=== PATIENT | male | born 1995 | race Caucasian/White ===

== ENCOUNTER 2020-11-01 16:58 | Outpatient (REF) | payer BC, SELFPAY ==
--- NOTE | 2020-11-01 17:04 | XR_ITS ---
EXAMINATION: Left hand series CLINICAL INFORMATION: Pain in left hand and wrist COMPARISON: None TECHNIQUE: 3 views of the left hand. FINDINGS: The scapholunate articulation appears narrowed The bones joints and soft tissues are otherwise unremarkable. XR/XR hand wrist LT IMPRESSION: Markedly narrowed appearance of the scapholunate articulation. 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
== END 2020-11-01 16:59 | disposition home or self-care (01) ==
LOC: HO.HMGCX 16:58
PROVIDERS: PCP Internal Medicine; Visit Provider Nurse Practitioner Family
DX: M79.642 Pain in left hand (principal); M25.532 Pain in left wrist
CPT/HCPCS: 73110; 73130

== ENCOUNTER 2024-02-17 08:03 | Outpatient (AMB) | payer OTHER, SELFPAY ==
--- NOTE | 2024-02-17 08:13 | MHC.OFFWIV ---
Intake Vital Signs 02/17/24 08:14 Height 6 ft 5 in Weight 220 lb BMI 26.1 BP 110/80 Blood Pressure Location Rt brachial Position Sitting Pulse 75 Pulse Source Pulse Oximeter Temp 98.0 F Temp Source Oral Pulse Oximetry (%) 96 Oxygen Delivery Method Room Air Intake Visit Reasons: EP LT wrist swelling/pain Intake Note: Pt is here today c/oLt wrist pain x4days ago no injury noted Allergies amoxicillin Adverse Reaction (Unknown, Verified 02/17/24 08:26) Unknown HPI EP LT wrist swelling/pain HPI Details Male presents to the office for a sick visit. Patient has noticed progressive pain and swelling in the left wrist. Does not recall any fall or injury. He was doing significant amount of yd work a week ago. This involved raking and cleaning. Physical Exam Vital Signs: Last Vital Signs Temp 98.0 F 02/17/24 08:14 Pulse 75 02/17/24 08:14 BP 110/80 02/17/24 08:14 Pulse Ox 96 02/17/24 08:14 Oxygen Delivery Method Room Air 02/17/24 08:14 BMI result Body Mass Index 26.1 Extrem Other: Left forearm: Wrist area is swollen compared to the right. Tender to touch. Able to flex the wrist completely. Tenderness over the tendons dorsally. Assessment & Plan Assessment & Plan (1) Tendinitis of left forearm: Code(s): M77.8 - Other enthesopathies, not elsewhere classified Plan: X-ray images personally reviewed by me. No fracture seen. Sling provided. Meloxicam sent in. Orders: Orders XR wrist LT min 3V Today M77.9 - Enthesopathy, unspecified XR forearm LT 2V Today M77.9 - Enthesopathy, unspecified Coding Level of Care Code Est Pt Level 4 (46492) Diagnoses Tendinitis of left forearm M77.8
[2024-02-17 08:14] VITALS: BP 110/80; PULSE 75; TEMP 36.7; O2SAT 96; BMI 26.1
--- NOTE | 2024-02-17 09:04 | MHC.OFFWIV ---
Intake Vital Signs 02/17/24 08:14 Height 6 ft 5 in Weight 220 lb BMI 26.1 BP 110/80 Blood Pressure Location Rt brachial Position Sitting Pulse 75 Pulse Source Pulse Oximeter Temp 98.0 F Temp Source Oral Pulse Oximetry (%) 96 Oxygen Delivery Method Room Air Intake Visit Reasons: EP LT wrist swelling/pain Allergies amoxicillin Adverse Reaction (Unknown, Verified 02/17/24 08:26) Unknown Physical Exam Vital Signs: Last Vital Signs Temp 98.0 F 02/17/24 08:14 Pulse 75 02/17/24 08:14 BP 110/80 02/17/24 08:14 Pulse Ox 96 02/17/24 08:14 Oxygen Delivery Method Room Air 02/17/24 08:14 BMI result Body Mass Index 26.1 Assessment & Plan Assessment & Plan Orders: Orders XR wrist LT min 3V Today M77.9 - Enthesopathy, unspecified XR forearm LT 2V Today M77.9 - Enthesopathy, unspecified Medications: New meloxicam 15 mg PO DAILY 14 tabs 0RF Coding
== END 2024-02-17 08:49 | disposition home or self-care (01) ==
PROVIDERS: PCP Internal Medicine; Visit Provider Internal Medicine
DX: M77.8 Other enthesopathies, not elsewhere classified (principal)
CPT/HCPCS: 99214

== ENCOUNTER 2024-02-17 08:23 | Outpatient (REF) | payer OTHER, SELFPAY ==
--- NOTE | ~2024-02-17 | XR_ITS ---
EXAMINATION: LEFT FOREARM, LEFT WRIST CLINICAL INFORMATION: Enthesopathy COMPARISON: Left wrist 11/01/2020 TECHNIQUE: 3 views left wrist, 2 views left forearm FINDINGS: No significant bone, joint or soft tissue abnormality is seen. The previously noted markedly narrowed appearance of the scapholunate articulation was probably artifactual secondary to technique as the scapholunate articulation appears normal on the current study. XR/XR forearm LT 2V IMPRESSION: Negative exam.
--- NOTE | ~2024-02-17 | XR_ITS ---
EXAMINATION: LEFT FOREARM, LEFT WRIST CLINICAL INFORMATION: Enthesopathy COMPARISON: Left wrist 11/01/2020 TECHNIQUE: 3 views left wrist, 2 views left forearm FINDINGS: No significant bone, joint or soft tissue abnormality is seen. The previously noted markedly narrowed appearance of the scapholunate articulation was probably artifactual secondary to technique as the scapholunate articulation appears normal on the current study. XR/XR wrist LT min 3V IMPRESSION: Negative exam.
== END 2024-02-17 08:24 | disposition home or self-care (01) ==
LOC: HO.HMGCX 08:23
PROVIDERS: PCP Internal Medicine; Visit Provider Internal Medicine
DX: M77.9 Enthesopathy, unspecified (principal)
CPT/HCPCS: 73090; 73110

== ENCOUNTER 2024-03-05 09:51 | Outpatient (AMB) | payer OTHER, SELFPAY ==
[2024-03-05 09:55] VITALS: BP 102/70; PULSE 65; O2SAT 99; BMI 26.3
--- NOTE | 2024-03-05 09:55 | A.OFFPC_ITS ---
Vital Signs 03/05/24 09:55 Height 6 ft 5 in Weight 221 lb 8 oz BMI 26.3 BP 102/70 Blood Pressure Location Rt brachial Position Sitting Pulse 65 Pulse Source Pulse Oximeter Pulse Oximetry (%) 99 Oxygen Delivery Method Room Air Intake Visit Reasons: Est Care/Requesting PE Intake Note: pt is here to est care Allergies amoxicillin Adverse Reaction (Unknown, Verified 03/05/24 10:23) Unknown Medication List - Last Reconciled 03/05/24 by VALENTINA Dial No Known Home Meds Tobacco use date assessed: 03/05/24 Dental Screening Dental Screen Date: 03/05/24 Did you have a dental visit in the last 12 months?: No Did you have a dental problem in the last 6 months where you did not have access to dental care?: No Was dental information given to patient?: Patient has dentist HPI HPI Comments History of Present Illness Details Patient is a 28-year-old male who I am meeting for the 1st time. He has not had a primary care provider and 10 years. He was previously seen in our walk-in in 2 weeks prior for left wrist pain after raking his yard for several hours. Patient had x-rays which were negative. Patient was given meloxicam with good effect. Patient arrives today with small amounts of swelling to his left forearm. Nonpitting. Patient denies tingling or numbness of the hands. States pain has mostly resolved. Patient has been instructed to rest the affected limb, utilize ice, and to utilize ibuprofen as needed. Patient states that he does have a past medical history significant for osteoarthritis of the right knee. He is currently being seen by [facility]. States that pain is most resolved with new shoe inserts. Patient will sign release to send medical information from Orthopedics. [facility] Surgical History (Updated 03/05/24 @ 10:25 by VALENTINA Dial) Hx of appendectomy Family History (Updated 03/05/24 @ 10:26 by VALENTINA Dial) Father Colon cancer Social History Housing: House Patient Tobacco Use Status: Former Tobacco user e-Cigarette/Vaping Use: Never Used Second Hand Smoke Exposure: No service: No Current occupational status: employed Current occupation: [employer] Current occupational exposures/hazards: Yes Questionnaire PHQ-9 Over the last 2 weeks, how often have you been bothered by any of the following problems? 1. Little interest or pleasure in doing things: not at all 2. Feeling down, depressed, or hopeless: not at all 3. Trouble falling or staying asleep, or sleeping too much: more than half the days 4. Feeling tired or having little energy: not at all 5. Poor appetite or overeating: not at all 6. Feeling bad about yourself - or that you are a failure or have let yourself or your family down: not at all 7. Trouble concentrating on things, such as reading the newspaper or watching television: not at all 8. Moving or speaking so slowly that other people could have noticed. Or the opposite - being so fidgety or restless that you have been moving around a lot more than usual: not at all 9. Thoughts that you would be better off or of hurting yourself in some way: not at all Total score: 2 Depression Screening Interpretation: Negative Depression Screening Done: Yes Source: Developed by Drs. Armani Nance, Marilee Rodriguez, Georgi Nicole and colleagues, with an educational eric from [employer]. Thrive Questionnaire Date Thrive assessed: 03/05/24 I am a: Patient What is your living situation today?: I have a steady place to live Within the past 12 months, did the food you bought not last and you didn't have the money to get more?: Never true Within the past 12 months, did you worry whether your food would run out before you got money to buy more?: Never true Do you have trouble paying for medicines?: No Do you have trouble getting transportation to medical appointments?: No Do you have trouble paying your heating and electricity bill?: No Do you have trouble taking care of your child, family member or friend?: No Do you have trouble with day-to-day activities such as bathing, preparing meals, shopping, managing finances, etc.?: No Are you currently unemployed and looking for a job?: No Are you interested in more education?: No THRIVE Score: 0 AUDIT C Alcohol Use Questionnaire (AUDIT-C) 1. How often do you have a drink containing alcohol?: 2-3 times a week 2. How many drinks containing alcohol do you have on a typical day when you are drinking?: 3 or 4 3. How often do you have six or more drinks on one occasion?: Monthly Total Score: 6 ONEAL-7 AMB Questionnaire ONEAL-7 Date ONEAL - 7 assessed: 03/05/24 Feeling nervous, anxious, or on edge: 1 = Several days Not being able to stop or control worryin = Not at all Worrying too much about different things: 1 = Several days Trouble relaxin = More than half the days Being so restless that it is hard to sit still: 2 = More than half the days Becoming easily annoyed or irritable: 2 = More than half the days Feeling afraid as if something awful might happen: 0 = Not at all Total ONEAL-7 score (0-4 normal; 5-9 mild; 10-14 moderate; 15-21 severe): 8 Source: Developed by Drs. Armani Nance, Marilee Rodriguez, Georgi Nicole and colleagues, with an educational eric from [employer]. ONEAL-7 Assessment Billing ONEAL-7 Assessment Tool: ONEAL-7 Assessment 54623 Review of Systems Const All systems reviewed & are unremarkable except as noted in HPI and below Skin/Breast Reports other (Edema right forearm) Physical exam (Primary Care) Vital Signs: Last Vital Signs Pulse 65 03/05/24 09:55 BP 102/70 03/05/24 09:55 Pulse Ox 99 03/05/24 09:55 Oxygen Delivery Method Room Air 03/05/24 09:55 Care Plan Goal for BP management: Vital signs reviewed stable BMI result Body Mass Index 26.3 Tobacco/Smoking Status: Tobacco use Status Tobacco use date assessed 03/05/24 03/05/24 10:05 Patient Tobacco Use Status Former Tobacco user 03/05/24 10:05 e-Cigarette/Vaping Use Never Used 03/05/24 10:05 PHQ-9: PHQ-9 Score PHQ-9: Total score 2 03/05/24 10:06 Depression Screening Interpretation: Negative Thrive Assessment: Date of Thrive Assessment Date Thrive assessed 03/05/24 03/05/24 10:06 Const Other: Appearance: Alert.? Oriented X3.? No acute distress.? Head: Normocephalic, atraumatic. Eyes: Pupils equal, round and reactive to light.? Neck: Normal inspection.? Neck supple.? CVS: Normal heart rate and rhythm.? Pulses normal.? Respiratory: No respiratory distress.? Breath sounds normal.? MSK: + Scant edema left forearm. Full ROM. No tenderness. Neuro: Oriented X 3.? No motor deficit.? No sensory deficit. CN 2-12 intact Assessment and Plan Assessment & Plan (1) Edema of left forearm: Comment: Patient has been instructed to use ibuprofen and ice as needed. Patient's recent x-ray was negative for fracture. Code(s): R60.0 - Localized edema Plan: Take your medications as prescribed. If you were prescribed antibiotics today, it is important that you take your medication to their entirety, do not skip any doses, do not finish them early. Follow-up with your primary care provider this week. Return to the emergency department with new or worsening symptoms. Such as fevers, chills, chest pain, shortness of breath, nausea, vomiting, dizziness, headache, vision changes, lethargy In case of emergency call 911 Plan Follow-up with physical exam in 4 months. Coding Level of Care Code Est Pt Level 3 (17872) Diagnoses Edema of left forearm R60.0 Additional Codes ONEAL-7 Assessment Billing - ONEAL-7 Assessment Tool: ONEAL-7 Assessment 53905 ([id number]) Time Spent (min) 24
== END 2024-03-05 11:07 | disposition home or self-care (01) ==
LOC: HO.HMGC 09:51
PROVIDERS: PCP Internal Medicine; Visit Provider Nurse Practitioner Primary Care
DX: R60.0 Localized edema (principal)
CPT/HCPCS: 99213

== ENCOUNTER 2024-03-23 07:41 | Outpatient (REF) | payer OTHER, SELFPAY ==
[2024-03-23 10:20] LABS: MANUAL DIFF FLAG NO
[2024-03-23 10:39] LABS: Basophils Absolute Auto 0.1 X10*3/uL (0.0-0.2); Basophils Percent Auto 0.7 % (0-2); Eosinophils Absolute Auto 0.3 X10*3/uL (0.0-0.4); Eosinophils Percent Auto 3.5 % (0-4); Hematocrit 45.6 % (42.0-52.0); Hemoglobin 15.8 g/dl (14.0-18.0); Imm Gran Abs Auto 0.04 X10*3/uL (0.00-0.03); Imm Gran Pct Auto 0.6 % (0.0-0.4); Lymphocytes Absolute Auto 2.3 X10*3/uL (1.2-4.9); Lymphocytes Percent Auto 32.2 % (20-40); Mean Corpuscular HGB Conc 34.6 g/dl (31.0-36.0); Mean Corpuscular Volume 86.7 fL (80.0-98.0); Mean Platelet Volume 10.4 fL (9.4-12.4); Monocytes Absolute Auto 0.6 X10*3/uL (0.1-1.2); Monocytes Percent Auto 8.1 % (2-11); Neutrophils Absolute Auto 3.9 x10*3/uL (2.0-8.3); Neutrophils Percent Auto 54.9 % (45-73); Platelet Count 219 X10*3/uL (160-400); Red Blood Count 5.26 X10*6/uL (4.60-5.80); Red Cell Distribution Width 12.2 % (11.0-16.0); White Blood Count 7.1 X10*3/uL (4.8-10.8)
[2024-03-23 10:46] LABS: Appearance Urine Clear; Color Urine Yellow; Glucose Urine UA Negative (Negative); Leukocyte Esterase Urine Negative (Negative); Nitrite Urine Negative (Negative); Urine Blood Negative (Negative); Urine Ketones Negative (Negative); Urine Protein Negative (Neg-Trace)
[2024-03-23 11:48] LABS: Alanine Aminotransferase 21 U/L (0-40); Albumin Level 4.5 g/dL (3.5-5.0); Alkaline Phosphatase 87 U/L (39-117); Anion Gap 12 (12-20); Aspartate Amino Transferase 21 U/L (5-37); Bilirubin Total 0.8 mg/dL (0.0-1.0); Blood Urea Nitrogen 13 mg/dL (9-16); Calcium 9.7 mg/dL (8.4-10.2); Carbon Dioxide 26 mmol/L (22-29); Chloride 105 mmol/L (96-108); Cholesterol 164 mg/dL (<200); Estimated Glomerular Filt Rate > 60; Glucose Random 86 mg/dL (60-115); HDL Cholesterol 41 mg/dL (>40); LDL Cholesterol Calculated 99 mg/dL (<100); Sodium 139 mmol/L (135-145); TSH reflex Free T4 1.52 uIU/mL (0.32-4.0); Total Protein 7.2 g/dL (6.5-8.0); Triglycerides 124 mg/dL (<150)
[2024-03-23 12:01] LABS: Vitamin B12 370 pg/mL (200-900)
[2024-03-27 16:53] LABS: Vitamin D 25-OH, D2 <4 ng/mL; Vitamin D 25-OH, D3 15 ng/mL; Vitamin D 25-OH, Total 15 ng/mL (30-100)
== END 2024-03-23 07:42 | disposition home or self-care (01) ==
LOC: HO.HMGCLDS 07:41
PROVIDERS: Visit Provider Nurse Practitioner Primary Care
DX: Z13.21 Encounter for screening for nutritional disorder (principal); Z13.0 Encounter for screening for diseases of the blood and blood-forming organs and certain disorders involving the immune mechanism; Z91.89 Other specified personal risk factors, not elsewhere classified; Z13.220 Encounter for screening for lipoid disorders; Z13.29 Encounter for screening for other suspected endocrine disorder; Z13.89 Encounter for screening for other disorder
CPT/HCPCS: 36415; 80053; 80061; 81003; 82306; 82607; 84207; 84443; 85025

== ENCOUNTER 2024-06-05 08:02 | Outpatient (AMB) | payer BC, SELFPAY ==
--- NOTE | 2024-06-05 08:10 | A.OFFPC_ITS ---
Vital Signs 06/05/24 08:11 Height 6 ft 5 in Weight 226 lb BMI 26.8 BP 120/76 Blood Pressure Location Rt brachial Position Sitting Pulse 65 Pulse Source Pulse Oximeter Pulse Oximetry (%) 98 Oxygen Delivery Method Room Air Intake Visit Reasons: Annual PE Intake Note: pt is here for annual PE. Allergies amoxicillin Adverse Reaction (Unknown, Verified 06/05/24 08:12) Unknown Medication List - Last Reconciled 06/05/24 by VALENTINA Dial No Known Home Meds Tobacco use date assessed: 06/05/24 Dental Screening Dental Screen Date: 06/05/24 Did you have a dental visit in the last 12 months?: No Did you have a dental problem in the last 6 months where you did not have access to dental care?: No Was dental information given to patient?: No HPI HPI Comments History of Present Illness Details Patient is a 28-year-old male in today for physical exam. PFSH Surgical History Hx of appendectomy Family History Father Colon cancer Social History Housing: House Patient Tobacco Use Status: Former Tobacco user e-Cigarette/Vaping Use: Never Used Second Hand Smoke Exposure: No service: No Current occupational status: employed Current occupation: [employer] Current occupational exposures/hazards: Yes Questionnaire Thrive Questionnaire Date Thrive assessed: 03/05/24 ONEAL-7 AMB Questionnaire ONEAL-7 Date ONEAL - 7 assessed: 03/05/24 Source: Developed by Drs. Armani Nance, Marilee Rodriguez, Georgi Nicole and colleagues, with an educational eric from [employer]. Review of Systems Const All systems reviewed & are unremarkable except as noted in HPI and below Physical exam (Primary Care) Tobacco/Smoking Status: Tobacco use Status Tobacco use date assessed 03/05/24 03/05/24 10:38 Patient Tobacco Use Status Former Tobacco user 03/05/24 10:38 e-Cigarette/Vaping Use Never Used 03/05/24 10:38 Thrive Assessment: Date of Thrive Assessment Date Thrive assessed 03/05/24 03/05/24 10:38 Const Other: Appearance: Alert.? Oriented X3.? No acute distress.? Head: Normocephalic, atraumatic, no step-offs or deformities Eyes: Pupils equal, round and reactive to light.? ENT: Pharynx normal.?TM intact and pearly bryant. Neck: Normal inspection.? Neck supple.? CVS: Normal heart rate and rhythm.? Pulses normal.? Respiratory: No respiratory distress.? Breath sounds normal.? Abdomen: Soft and nontender.? Skin: Skin warm and dry.? Normal skin color.? Normal skin turgor.? Extremities: No lower extremity edema.? No calf ttp. 5/5 strength to bilateral upper and lower extremities Back: No midline tenderness, no C-spine tenderness, full range of motion, no CVA tenderness bilaterally Neuro: Oriented X 3.? No motor deficit.? No sensory deficit. CN 2-12 intact Results Reviewed Results Reviewed: Vit D, 25-OH D2 <4 ng/mL This test was developed and its analytical performance characteristics have been determined by [facility] [place], [place]. It has not been cleared or approved by the U.S. Food and Drug Administration. This assay has been validated pursuant to the CLIA regulations and is used for clinical purposes. THIS TEST WAS PERFORMED AT: [facility] [address] GEORGINA GALAN MD,PHD Vit D, 25-OH D3 15 ng/mL This test was developed and its analytical performance characteristics have been determined by [facility] [place], [place]. It has not been cleared or approved by the U.S. Food and Drug Administration. This assay has been validated pursuant to the CLIA regulations and is used for clinical purposes. Vit D 25-OH Tot 15 L 30-100 ng/mL Vitamin D, 25-Hydroxy reports concentrations of two common forms, 25-OHD2 and 25-OHD3. 25-OHD3 indicates both endogenous production and supplementation. 25-OHD2 is an indicator of exogenous sources such as diet or supplementation. Therapy is based on measurement of Total 25-OHD, with levels <20 ng/mL indicative of Vitamin D deficiency, while levels between 20 ng/mL and 30 ng/mL suggest insufficiency. Optimal levels are > or = 30 ng/mL. For additional information, please refer to http://education.SocialEars.Mindframe/faq/TOT621 (This link is being provided for informational/ educational purposes only.) Assessment and Plan Assessment & Plan (1) Physical exam: Comment: patient has been educated on the importance of self-testicular exams. Has been educated on proper food diet. Has been educated on reduction of alcohol consumption. Will give tetanus vaccine today. Code(s): Z00.00 - Encounter for general adult medical examination without abnormal findings (2) Vitamin D deficiency: Comment: Patient has been utilizing 2000 units vitamin D3 daily. Will redraw vitamin- D. Code(s): E55.9 - Vitamin D deficiency, unspecified Plan Follow-up in 6-8 months Orders: Orders Vitamin D 25-OH (D2 and D3) Today Z13.21 - Encounter for screening for nutritional disorder Comprehensive Met. Panel Today Z91.89 - Other specified personal risk factors, not elsewhere classified Complete Blood Count Auto Diff Today Z13.0 - Encounter for screening for diseases of the blood and blood-forming organs and certain disorders involving the immune mechanism Coding Level of Care Code Est Pt Prev Care 18-39y(00799) Diagnoses Physical exam Z00.00 Vitamin D deficiency E55.9 Time Spent (min) 28
[2024-06-05 08:11] VITALS: BP 120/76; PULSE 65; O2SAT 98; BMI 26.8
== END 2024-06-05 08:29 | disposition home or self-care (01) ==
PROVIDERS: PCP Nurse Practitioner Primary Care; Visit Provider Nurse Practitioner Primary Care
DX: Z00.00 Encounter for general adult medical examination without abnormal findings (principal); E55.9 Vitamin D deficiency, unspecified; Z23 Encounter for immunization
CPT/HCPCS: 90471; 90715; 99395

== ENCOUNTER 2024-08-20 08:06 | Outpatient (AMB) | payer BC, SELFPAY ==
[2024-08-20 08:08] VITALS: BP 140/80; PULSE 56; O2SAT 98; BMI 27.3
--- NOTE | 2024-08-20 08:08 | AM.OFFWIN_ITS ---
Intake Vital Signs 08/20/24 08:08 Height 6 ft 5 in Weight 230 lb 8 oz BMI 27.3 BP 140/80 H Blood Pressure Location Lt brachial Position Sitting Pulse 56 Pulse Source Pulse Oximeter Pulse Oximetry (%) 98 Oxygen Delivery Method Room Air Intake Visit Reasons: EP-tonsil swollen at times Intake Note: Patient here for right tonsil area has been bothersome for a few weeks now. Patient Tobacco Use Status: Former Tobacco user Allergies amoxicillin Adverse Reaction (Unknown, Verified 08/20/24 08:14) Unknown Do you need a note to return to daycare/school/sports/work: No HPI EP-tonsil swollen at times HPI Details This note is constructed using voice recognition software. 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 The patient is a 29 year old male who presents to the clinic today with Right sided swollen lymph node intermittently for the past 3 weeks. [facility]LY [facility], [facility] Surgical History Hx of appendectomy Family History Father Colon cancer Social History Housing: House Patient Tobacco Use Status: Former Tobacco user e-Cigarette/Vaping Use: Never Used Second Hand Smoke Exposure: No service: No Current occupational status: employed Current occupation: [employer] Current occupational exposures/hazards: Yes Review of Systems Const All systems reviewed & are unremarkable except as noted in HPI and below Physical Exam Vital Signs: Last Vital Signs Pulse 56 08/20/24 08:08 BP 140/80 H 08/20/24 08:08 Pulse Ox 98 08/20/24 08:08 Oxygen Delivery Method Room Air 08/20/24 08:08 BMI result Body Mass Index 27.3 Const General: cooperative, healthy appearing, comfortable and no acute distress Orientation/consciousness: patient oriented x3 Limitations: no limitations HEENT Head: Yes normal to inspection Ears: hearing grossly normal bilaterally, external ears normal and TM abnormal retracted General nose exam: Normal external nose present, No nasal discharge present and Abnormal mucous membranes and turbinates present boggy and pale Face and sinus: Yes normal facial exam and Yes sinuses nontender Mouth: Normal oral and palatal mucosa present and moist mucous membranes Throat: Yes tonsils normal, Yes uvula midline, Yes posterior oropharynx abnormal (Erythema), Yes postnasal drainage and Yes cobblestoning Eyes General: appearance normal, both eyes and all related structures Neck Neck: Yes normal visual inspection Resp Effort & Inspection: normal respiratory effort, able to speak in complete sentences, Actively coughing, no respiratory distress, not tachypneic, no tripod positioning and no use of accessory muscles Auscultation: clear to auscultation bilaterally Cardio Rate: regular rate Rhythm: regular rhythm Heart sounds: normal S1 and S2 Skin General skin exam: no rashes or lesions noted Neuro General: patient oriented x3 Extrem General: Yes normal to inspection and Yes no clubbing, cyanosis or edema Assessment & Plan Assessment & Plan (1) Allergic rhinitis: Code(s): J30.9 - Allergic rhinitis, unspecified Qualifiers: Allergic rhinitis trigger: pollen Allergic rhinitis seasonality: seasonal Qualified Code(s): J30.1 - Allergic rhinitis due to pollen Plan: Supportive measures encouraged and reviewed. Advised patient to try a Flonase nasal spray and second-generation antihistamine such as Zyrtec, Claritin, Vangie or similar. Advised consideration of sinus rinse if needed. Advised patient to follow up with primary care provider with worsening or failure to resolve. Plan See above for full details and plan. Coding Level of Care Code Est Pt Level 3 (45689) Diagnoses Seasonal allergic rhinitis due to pollen J30.1 Allergic rhinitis trigger: pollen Allergic rhinitis seasonality: seasonal
== END 2024-08-20 09:10 | disposition home or self-care (01) ==
PROVIDERS: PCP Nurse Practitioner Primary Care; Visit Provider Registered Nurse
DX: J30.1 Allergic rhinitis due to pollen (principal)

== ENCOUNTER → 2024-08-20 08:06 | Outpatient (BNVA) | payer BC, SELFPAY | PROVIDERS: PCP Nurse Practitioner Primary Care | DX: J30.1 Allergic rhinitis due to pollen (principal) ==

== ENCOUNTER 2024-10-12 13:19 | Outpatient (AMB) | payer BC, SELFPAY ==
[2024-10-12 13:31] VITALS: BP 128/78; PULSE 71; O2SAT 98; BMI 27.7
--- NOTE | 2024-10-12 13:31 | MHC.PC.OV ---
Vital Signs 10/12/24 13:31 Height 6 ft 5 in Weight 234 lb BMI 27.7 BP 128/78 Blood Pressure Location Lt brachial Position Sitting Pulse 71 Pulse Source Pulse Oximeter Pulse Oximetry (%) 98 Oxygen Delivery Method Room Air Intake Visit Reasons: sinus congestion Intake Note: Pt is here today for a sick visit. Pt c/o sinus congestion. Pt states that when he is using nasal spray he has no congestion. Allergies amoxicillin Adverse Reaction (Unknown, Verified 10/12/24 13:35) Unknown Medication List - Last Reconciled 10/12/24 by Sarah Tipton MD No Known Home Meds Tobacco use date assessed: 06/05/24 Dental Screening Dental Screen Date: 06/05/24 HPI sinus congestion HPI Details Pt c/o nasal congestion for 2 weeks using decongestant nasal spray every 4- 6 hrs. Patient denies fever chills sore throat sinus or facial pain. 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 Patient denies history of seasonal allergy. [facility] Surgical History Hx of appendectomy Family History Father Colon cancer Social History Housing: House Patient Tobacco Use Status: Former Tobacco user e-Cigarette/Vaping Use: Never Used Second Hand Smoke Exposure: No service: No Current occupational status: employed Current occupation: [employer] Current occupational exposures/hazards: Yes Cognitive needs: No Hearing needs: No Vision needs: No Questionnaire PHQ-9 Over the last 2 weeks, how often have you been bothered by any of the following problems? 1. Little interest or pleasure in doing things: not at all 2. Feeling down, depressed, or hopeless: not at all 3. Trouble falling or staying asleep, or sleeping too much: not at all 4. Feeling tired or having little energy: not at all 5. Poor appetite or overeating: not at all 6. Feeling bad about yourself - or that you are a failure or have let yourself or your family down: not at all 7. Trouble concentrating on things, such as reading the newspaper or watching television: not at all 8. Moving or speaking so slowly that other people could have noticed. Or the opposite - being so fidgety or restless that you have been moving around a lot more than usual: not at all 9. Thoughts that you would be better off or of hurting yourself in some way: not at all Total score: 0 Depression Screening Interpretation: Negative Depression Screening Done: Yes 29639 - PHQ-9 Billing: Yes Source: Developed by Drs. Armani Nance, Marilee Rodriguez, Georgi Nicole and colleagues, with an educational eric from [employer]. Thrive Questionnaire Date Thrive assessed: 03/05/24 I am a: Patient What is your living situation today?: I have a steady place to live Within the past 12 months, did the food you bought not last and you didn't have the money to get more?: Never true Within the past 12 months, did you worry whether your food would run out before you got money to buy more?: Never true Do you have trouble paying for medicines?: No Do you have trouble getting transportation to medical appointments?: No Do you have trouble paying your heating and electricity bill?: No Do you have trouble taking care of your child, family member or friend?: No Do you have trouble with day-to-day activities such as bathing, preparing meals, shopping, managing finances, etc.?: No Are you currently unemployed and looking for a job?: No Are you interested in more education?: No Please select the resources that you would like help with: None Currently or been in a relationship where the following occur: No concerns reported THRIVE Score: 0 AUDIT C Alcohol Use Questionnaire (AUDIT-C) 1. How often do you have a drink containing alcohol?: 2-3 times a week 2. How many drinks containing alcohol do you have on a typical day when you are drinking?: 3 or 4 3. How often do you have six or more drinks on one occasion?: Less than monthly Total Score: 5 ONEAL-7 AMB Questionnaire ONEAL-7 Date ONEAL - 7 assessed: 03/05/24 Feeling nervous, anxious, or on edge: 0 = Not at all Not being able to stop or control worryin = Not at all Worrying too much about different things: 0 = Not at all Trouble relaxin = Not at all Being so restless that it is hard to sit still: 0 = Not at all Becoming easily annoyed or irritable: 0 = Not at all Feeling afraid as if something awful might happen: 0 = Not at all Total ONEAL-7 score (0-4 normal; 5-9 mild; 10-14 moderate; 15-21 severe): 0 Source: Developed by Drs. Armani Nance, Marilee Rodriguez, Georgi Nicole and colleagues, with an educational eric from [employer]. Review of Systems Const All systems reviewed & are unremarkable except as noted in HPI and below ENT Reports no additional complaints Card Reports no additional complaints Resp Reports no additional complaints GI Reports no additional complaints Reports no additional complaints Physical exam (Primary Care) Vital Signs: Last Vital Signs Pulse 71 10/12/24 13:31 BP 128/78 10/12/24 13:31 Pulse Ox 98 10/12/24 13:31 Oxygen Delivery Method Room Air 10/12/24 13:31 BMI result Body Mass Index 27.7 Tobacco/Smoking Status: Tobacco use Status Tobacco use date assessed 06/05/24 10/12/24 13:37 Patient Tobacco Use Status Former Tobacco user 10/12/24 13:37 e-Cigarette/Vaping Use Never Used 10/12/24 13:37 PHQ-9: PHQ-9 Score PHQ-9: Total score 0 10/12/24 13:37 Depression Screening Interpretation: Negative Thrive Assessment: Date of Thrive Assessment Date Thrive assessed 03/05/24 10/12/24 13:37 Currently or been in a relationship where the following occur: No concerns reported Const General: no acute distress HENMT Head: Yes normal to inspection Ears: TM's normal bilaterally General nose exam: Abnormal mucous membranes and turbinates present boggy and erythematous Face and sinus: No Facial tenderness on exam of face and sinuses Throat: Yes posterior oropharynx normal Eyes General: appearance normal, both eyes and all related structures Neck Neck: Yes no lymphadenopathy and Yes supple Resp Effort & Inspection: normal respiratory effort Auscultation: clear to auscultation bilaterally Cardio Rhythm: regular rhythm Heart sounds: S1 normal heart sound present and S2 normal heart sound present Coding Level of Care Code Est Pt Level 3 (18137) Diagnoses Rhinitis medicamentosa J31.0; T48.5X5A Additional Codes PHQ-9 - 69075 - PHQ-9 Billing: Yes ([id number]) Assessment & Plan Assessment & Plan (1) Rhinitis medicamentosa: Code(s): J31.0 - Chronic rhinitis; T48.5X5A - Adverse effect of other tiet-ibtzbi-szld drugs, initial encounter Category: Medical Plan: Patient was advised to stop using decongestant nasal spray. prednisone 20 mg daily for 7 days is prescribed. patient was advised to use a saline nasal spray as needed and add Claritin if he has recurrent congestion after prednisone. Medications: New prednisone 20 mg PO DAILY 7 tabs 0RF prednisone 20 mg PO DAILY 7 tabs 0RF
== END 2024-10-12 14:02 | disposition home or self-care (01) ==
PROVIDERS: PCP Internal Medicine; Visit Provider Internal Medicine
DX: J31.0 Chronic rhinitis (principal); T48.5X5A Adverse effect of other anti-common-cold drugs, initial encounter

== ENCOUNTER → 2024-10-12 13:19 | Outpatient (BNVA) | payer BC, SELFPAY | PROVIDERS: PCP Internal Medicine; Visit Provider Internal Medicine | DX: J31.0 Chronic rhinitis (principal); T88.7XXA Unspecified adverse effect of drug or medicament, initial encounter; T48.5X5A Adverse effect of other anti-common-cold drugs, initial encounter | CPT/HCPCS: 96127 ==

== ENCOUNTER 2025-01-12 09:44 | Outpatient (AMB) | payer BC, SELFPAY ==
[2025-01-12 09:45] VITALS: BP 124/80; PULSE 88; RESP 18; TEMP 37.5; O2SAT 97; BMI 27.5
--- NOTE | 2025-01-12 09:45 | A.OFFPC_ITS ---
Vital Signs 01/12/25 09:45 Height 6 ft 5 in Weight 232 lb BMI 27.5 BP 124/80 Blood Pressure Location Lt brachial Position Sitting Respiration 18 Pulse 88 Pulse Source Pulse Oximeter Temp 99.5 F Temp Source Oral Pulse Oximetry (%) 97 Oxygen Delivery Method Room Air Intake Visit Reasons: throat pain Intake Note: Pt is here today for a sick visit. Pt c/o sore throat, headache, weakness diarrhea, fever since Saturday night. Pt also states that he has a cough and yellow/green mucus. Allergies amoxicillin Adverse Reaction (Unknown, Verified 01/12/25 09:45) Unknown Tobacco use date assessed: 01/12/25 Dental Screening Dental Screen Date: 01/12/25 Did you have a dental visit in the last 12 months?: Yes Did you have a dental problem in the last 6 months where you did not have access to dental care?: No Was dental information given to patient?: Patient has dentist HPI throat pain HPI Details Pt c/o diarrhea, fever for 2 days, body aches, and productive cough getting better today. Patient denies nausea vomiting abdominal pain hematochezia melena he has been tolerating bland diet. [facility] Surgical History Hx of appendectomy Family History Father Colon cancer Social History Housing: House Patient Tobacco Use Status: Former Tobacco user e-Cigarette/Vaping Use: Never Used Second Hand Smoke Exposure: No service: No Current occupational status: employed Current occupation: [employer] Current occupational exposures/hazards: Yes Cognitive needs: No Hearing needs: No Vision needs: No Questionnaire PHQ-9 Over the last 2 weeks, how often have you been bothered by any of the following problems? 1. Little interest or pleasure in doing things: not at all 2. Feeling down, depressed, or hopeless: not at all 3. Trouble falling or staying asleep, or sleeping too much: not at all 4. Feeling tired or having little energy: not at all 5. Poor appetite or overeating: not at all 6. Feeling bad about yourself - or that you are a failure or have let yourself or your family down: not at all 7. Trouble concentrating on things, such as reading the newspaper or watching television: not at all 8. Moving or speaking so slowly that other people could have noticed. Or the opposite - being so fidgety or restless that you have been moving around a lot more than usual: not at all 9. Thoughts that you would be better off or of hurting yourself in some way : not at all Total score: 0 Depression Screening Interpretation: Negative Depression Screening Done: Yes 38963 - PHQ-9 Billing: Yes Source: Developed by Drs. Armani Nance, Marilee Rodriguez, Georgi Nicole and colleagues, with an educational eric from [employer]. Thrive Questionnaire Date Thrive assessed: 01/12/25 I am a: Patient What is your living situation today?: I have a steady place to live Within the past 12 months, did the food you bought not last and you didn't have the money to get more?: Never true Within the past 12 months, did you worry whether your food would run out before you got money to buy more?: Never true Do you have trouble paying for medicines?: No Do you have trouble getting transportation to medical appointments?: No Do you have trouble paying your heating and electricity bill?: No Do you have trouble taking care of your child, family member or friend?: No Do you have trouble with day-to-day activities such as bathing, preparing meals, shopping, managing finances, etc.?: No Are you currently unemployed and looking for a job?: No Are you interested in more education?: No Please select the resources that you would like help with: None Currently or been in a relationship where the following occur: No concerns reported THRIVE Score: 0 AUDIT C Alcohol Use Questionnaire (AUDIT-C) 1. How often do you have a drink containing alcohol?: 2-4 times a month 2. How many drinks containing alcohol do you have on a typical day when you are drinking?: 3 or 4 3. How often do you have six or more drinks on one occasion?: Less than monthly Total Score: 4 ONEAL-7 AMB Questionnaire ONEAL-7 Date ONEAL - 7 assessed: 01/12/25 Feeling nervous, anxious, or on edge: 0 = Not at all Not being able to stop or control worryin = Not at all Worrying too much about different things: 0 = Not at all Trouble relaxin = Not at all Being so restless that it is hard to sit still: 0 = Not at all Becoming easily annoyed or irritable: 0 = Not at all Feeling afraid as if something awful might happen: 0 = Not at all Total ONEAL-7 score (0-4 normal; 5-9 mild; 10-14 moderate; 15-21 severe): 0 Source: Developed by Drs. Armani Nance, Marilee Rodriguez, Georgi Nicole and colleagues, with an educational eric from [employer]. ONEAL-7 Assessment Billing ONEAL-7 Assessment Tool: ONEAL-7 Assessment 14034 Review of Systems Const All systems reviewed & are unremarkable except as noted in HPI and below Eyes Reports no additional complaints ENT Reports no additional complaints Card Reports no additional complaints Resp Reports no additional complaints GI Reports no additional complaints Reports no additional complaints Physical exam (Primary Care) Vital Signs: Last Vital Signs Temp 99.5 F 01/12/25 09:45 Pulse 88 01/12/25 09:45 Resp 18 01/12/25 09:45 BP 124/80 01/12/25 09:45 Pulse Ox 97 01/12/25 09:45 Oxygen Delivery Method Room Air 01/12/25 09:45 BMI result Body Mass Index 27.5 Tobacco/Smoking Status: Tobacco use Status Tobacco use date assessed 01/12/25 01/12/25 09:55 Patient Tobacco Use Status Former Tobacco user 01/12/25 09:55 e-Cigarette/Vaping Use Never Used 01/12/25 09:55 PHQ-9: PHQ-9 Score PHQ-9: Total score 0 01/12/25 10:03 Depression Screening Interpretation: Negative Thrive Assessment: Date of Thrive Assessment Date Thrive assessed 01/12/25 01/12/25 09:55 Currently or been in a relationship where the following occur: No concerns reported Const General: no acute distress HENMT Head: Yes normal to inspection Face and sinus: Yes normal facial exam Eyes General: appearance normal, both eyes and all related structures Resp Effort & Inspection: normal respiratory effort Auscultation: clear to auscultation bilaterally Cardio Rhythm: regular rhythm Heart sounds: S1 normal heart sound present and S2 normal heart sound present GI Inspection: Yes normal to inspection Palpation (GI): Soft to palpation Percussion: Yes normal to percussion Auscultation: normal bowel sounds Results AMB Rapid Strep AMB Rapid Strep Negative Last Edit by NAVNEET Brian on 01/12/25 10: 03 Results Reviewed Results Reviewed: Laboratory Last Values Strep Scn Rapid Clinic Negative 01/12/25 09:57 Coding Level of Care Code Est Pt Level 3 (58043) Diagnoses Viral infection B34.9 Additional Codes ONEAL-7 Assessment Billing - ONEAL-7 Assessment Tool: ONEAL-7 Assessment 31320 ([id number]) PHQ-9 - 15108 - PHQ-9 Billing: Yes ([id number]) Assessment & Plan Assessment & Plan (1) Viral infection: Code(s): B34.9 - Viral infection, unspecified Category: Medical Plan: Supportive care discussed with the patient Orders: Orders AMB Rapid Strep Screen Today Z13.9 - Encounter for screening, unspecified
--- OUTSIDE RECORDS SUMMARY | 2025-01-12 10:31 | XMS_ITS | Clinical Summary ---
Author Organization [facility] Address [address] [place] [id number] Phone Care Team Providers Care Crystal Calibrator Name Role Phone Renetta Hoffmann MD Primary Care Pro vider Social History Tobacco Use Types Packs/Day Years Used Date Smoking Tobacco: Never Comments:Never Sex and Gender Information Value Date Recorded Sex Assigned at Not on file Legal Sex Male 12:18 PM EST Gender Identity Not on file Sexual Orientation Not on file Last Filed Vital Signs Vital Sign Reading Time Taken Comments Blood Pressure 109/64 07/25/2015 12:00 AM EDT Pulse 61 07/25/2015 12:00 AM EDT Temperature 36.6 ??C (97.8 ??F) 07/25/2015 12:00 AM E DT Respiratory Rate - - Oxygen Saturation - - Inhaled Oxygen Concentration - - Weight 91.8 kg (202 lb 6 oz) 07/25/2015 12:00 AM EDT Height 195.6 cm (6' 5 ) 07/25/2015 12:00 AM EDT Body Mass Index 24 07/25/2015 12:00 AM EDT Plan of Treatment Health Maintenance Due Date Last Done Comments Consider Men B Vaccine (1 of 2 - Bexsero 2-dose series) 2010 DTaP,Tdap,and Td Vaccines (8 - Td or Tdap) 04/26/2018 04/26/2008, 02/07/2005, 02/14/1999, Additional history exists Influenza Vaccines (#1) 2024 09/10/20 14, 06/11/2012, 08/26/2010, Additional history exists COVID-19 Vaccine ( season) 2024 Hepatitis B Vaccines Completed 02/03/1995, 1994, 1994 HIB Vaccines Completed 11/06/1995, 12/27, 1994, Additional history exists IPV Vaccines Completed 11/06/1995, 12/27, 1994, Additional history exists MMR Vaccines Completed 02/14/1999, 07/12/1996 Varicella Vaccines Completed 05/05/2007, 01/25/1997 HPV Vaccines Completed 06/07/2011, 06/26, 05/16/2010 Meningococcal Vaccine Completed 06/11/2012, 007 Hepatitis A Vaccines Aged Out No long er eligible based on patient's age to complete this topic Men B Vaccine Aged Out No longer elig ible based on patient's age to complete this topic Pneumococcal Vaccine Aged Out No long er eligible based on patient's age to complete this topic Care Teams Crystal Calibrator Relationship Specialty Start Date End Date Renetta Hoffmann MD [address] [place] [id number] PCP - General 07/25/15
--- OUTSIDE RECORDS SUMMARY | 2025-01-12 10:31 | XMS_ITS | Encounter Summary ---
Author Organization [facility] Address [address] [place] [address] Phone Care Team Providers Care Client Service Coordinator Name Role Phone Renetta Hoffmann MD Primary Care Pro vider Encounter Details Date Type Department Care Team (Late st Contact Info) Description 01/23/2018 Conversion Encounter [facility] [address] [phone] Renetta Hoffmann MD [address] [phone] Social History Tobacco Use Types Packs/Day Years Used Date Smoking Tobacco: Never Comments:Never Sex and Gender Information Value Date Recorded Sex Assigned at Not on file Legal Sex Male 12:18 PM EST Gender Identity Not on file Sexual Orientation Not on file documented as of this encounter Plan of Treatment Not on file documented as of this encounter Visit Diagnoses Not on filedocumented in this encounter Care Teams Client Service Coordinator Relationship Specialty Start Date End Date Renetta Hoffmann MD [address] [id number] PCP - General 07/25/15 documented as of this encounter
== END 2025-01-12 10:35 | disposition home or self-care (01) ==
PROVIDERS: PCP Internal Medicine; Visit Provider Internal Medicine
DX: Z13.9 Encounter for screening, unspecified (principal); B34.9 Viral infection, unspecified

== ENCOUNTER → 2025-01-12 09:44 | Outpatient (BNVA) | payer BC, SELFPAY | PROVIDERS: PCP Internal Medicine; Visit Provider Internal Medicine | DX: B34.9 Viral infection, unspecified (principal) | CPT/HCPCS: 87880; 96127 ==

== ENCOUNTER 2025-02-01 10:06 | Outpatient (AMB) | payer BC, SELFPAY ==
--- NOTE | 2025-02-01 10:09 | A.OFFPC_ITS ---
Vital Signs 02/01/25 10:12 Height 6 ft 5 in Weight 215 lb BMI 25.5 BP 122/78 Blood Pressure Location Lt brachial Position Sitting Respiration 18 Pulse 78 Pulse Source Pulse Oximeter Pulse Oximetry (%) 98 Oxygen Delivery Method Room Air Intake [facility] Intake Note: Pt is here today to establish care, transferring from [facility]. Allergies amoxicillin Adverse Reaction (Unknown, Verified 02/01/25 10:10) Unknown Tobacco use date assessed: 02/01/25 Dental Screening Dental Screen Date: 02/01/25 Did you have a dental visit in the last 12 months?: Yes Did you have a dental problem in the last 6 months where you did not have access to dental care?: No Was dental information given to patient?: Patient has dentist [facility] HPI Details Pt presents for f/u URI, resolved. Pt c/o anxiety on and off for 1 year. Patient denies depression insomnia change in appetite. He feels better after working out. PFSH Surgical History Hx of appendectomy Family History Father Colon cancer Social History Housing: House Patient Tobacco Use Status: Former Tobacco user e-Cigarette/Vaping Use: Never Used Second Hand Smoke Exposure: No service: No Current occupational status: employed Current occupation: [employer] Current occupational exposures/hazards: Yes Cognitive needs: No Hearing needs: No Vision needs: No Questionnaire PHQ-9 Over the last 2 weeks, how often have you been bothered by any of the following problems? 1. Little interest or pleasure in doing things: not at all 2. Feeling down, depressed, or hopeless: not at all 3. Trouble falling or staying asleep, or sleeping too much: not at all 4. Feeling tired or having little energy: not at all 5. Poor appetite or overeating: not at all 6. Feeling bad about yourself - or that you are a failure or have let yourself or your family down: not at all 7. Trouble concentrating on things, such as reading the newspaper or watching television: not at all 8. Moving or speaking so slowly that other people could have noticed. Or the opposite - being so fidgety or restless that you have been moving around a lot more than usual: not at all 9. Thoughts that you would be better off or of hurting yourself in some way: not at all Total score: 0 Depression Screening Interpretation: Negative Depression Screening Done: Yes 49321 - PHQ-9 Billing: Yes Source: Developed by Drs. Armani Nance, Marilee Rodriguez, Georgi Nicole and colleagues, with an educational eric from [employer]. Thrive Questionnaire Date Thrive assessed: 02/01/25 I am a: Patient What is your living situation today?: I have a steady place to live Within the past 12 months, did the food you bought not last and you didn't have the money to get more?: Never true Within the past 12 months, did you worry whether your food would run out before you got money to buy more?: Never true Do you have trouble paying for medicines?: No Do you have trouble getting transportation to medical appointments?: No Do you have trouble paying your heating and electricity bill?: No Do you have trouble taking care of your child, family member or friend?: No Do you have trouble with day-to-day activities such as bathing, preparing meals, shopping, managing finances, etc.?: No Are you currently unemployed and looking for a job?: No Are you interested in more education?: No Please select the resources that you would like help with: None Currently or been in a relationship where the following occur: No concerns reported THRIVE Score: 0 AUDIT C Alcohol Use Questionnaire (AUDIT-C) 1. How often do you have a drink containing alcohol?: 2-4 times a month 2. How many drinks containing alcohol do you have on a typical day when you are drinking?: 3 or 4 3. How often do you have six or more drinks on one occasion?: Less than monthly Total Score: 4 Score Reviewed/Action Taken: Yes ONEAL-7 AMB Questionnaire ONEAL-7 Date ONEAL - 7 assessed: 02/01/25 Feeling nervous, anxious, or on edge: 0 = Not at all Not being able to stop or control worryin = Not at all Worrying too much about different things: 0 = Not at all Trouble relaxin = Not at all Being so restless that it is hard to sit still: 0 = Not at all Becoming easily annoyed or irritable: 0 = Not at all Feeling afraid as if something awful might happen: 0 = Not at all Total ONEAL-7 score (0-4 normal; 5-9 mild; 10-14 moderate; 15-21 severe): 0 Source: Developed by Drs. Armani Nance, Marilee Rodriguez, Georgi Nicole and colleagues, with an educational eric from [employer]. ONEAL-7 Assessment Billing ONEAL-7 Assessment Tool: ONEAL-7 Assessment 33864 Review of Systems Const All systems reviewed & are unremarkable except as noted in HPI and below Eyes Reports no additional complaints ENT Reports no additional complaints Card Reports no additional complaints Resp Reports no additional complaints GI Reports no additional complaints Reports no additional complaints Physical exam (Primary Care) Vital Signs: Last Vital Signs Pulse 78 02/01/25 10:12 Resp 18 02/01/25 10:12 BP 122/78 02/01/25 10:12 Pulse Ox 98 02/01/25 10:12 Oxygen Delivery Method Room Air 02/01/25 10:12 BMI result Body Mass Index 25.5 Tobacco/Smoking Status: Tobacco use Status Tobacco use date assessed 02/01/25 02/01/25 10:12 Patient Tobacco Use Status Former Tobacco user 02/01/25 10:12 e-Cigarette/Vaping Use Never Used 02/01/25 10:12 PHQ-9: PHQ-9 Score PHQ-9: Total score 0 02/01/25 10:22 Depression Screening Interpretation: Negative Thrive Assessment: Date of Thrive Assessment Date Thrive assessed 02/01/25 02/01/25 10:12 Currently or been in a relationship where the following occur: No concerns reported Const General: no acute distress HENMT Head: Yes normal to inspection Ears: hearing grossly normal bilaterally Face and sinus: Yes normal facial exam Eyes General: appearance normal, both eyes and all related structures Neck Neck: Yes no lymphadenopathy and Yes supple Resp Effort & Inspection: normal respiratory effort Auscultation: clear to auscultation bilaterally Cardio Rhythm: regular rhythm Heart sounds: S1 normal heart sound present and S2 normal heart sound present Coding Level of Care Code Est Pt Level 3 (45002) Diagnoses Anxiety F41.9 Additional Codes ONEAL-7 Assessment Billing - ONEAL-7 Assessment Tool: ONEAL-7 Assessment 46934 ([id number]) PHQ-9 - 31581 - PHQ-9 Billing: Yes ([id number]) Assessment & Plan Assessment & Plan (1) Anxiety: Code(s): F41.9 - Anxiety disorder, unspecified Category: Medical Plan: Stress management and regular physical activity mindfulness discussed with the patient
[2025-02-01 10:12] VITALS: BP 122/78; PULSE 78; RESP 18; O2SAT 98; BMI 25.5
--- OUTSIDE RECORDS SUMMARY | 2025-02-01 11:13 | XMS_ITS | Clinical Summary ---
Author Organization [facility] Address [address] [place] [phone] Phone Care Team Providers Care Oncology Navigator Name Role Phone Renetta Hoffmann MD Primary [...] Health Maintenance Due Date Last Done Comments DTaP,Tdap,and Td Vaccines (8 - Td or [...] age to complete this topic Care Teams Oncology Navigator Relationship Specialty Start Date End Date Renetta Hoffmann MD [address] [place] [id number] PCP - General 07/25/15
--- OUTSIDE RECORDS SUMMARY | 2025-02-01 11:13 | XMS_ITS | Encounter Summary ---
Author Organization [facility] Address [address] [place] [address] Phone Care Team Providers Care Glaze Handler Name Role Phone Renetta Hoffmann MD Primary Care Pro vider Encounter Details Date Type Department Care Team (Late st Contact Info) Description 01/23/2018 Conversion Encounter [facility] [address] [phone] Renetta Hoffmann MD [address] [phone] Social History Tobacco Use Types Packs/Day Years [...] on filedocumented in this encounter Care Teams Glaze Handler Relationship Specialty Start Date End Date Renetta Hoffmann MD [address] [phone] PCP - General 07/25/15 documented as of this encounter
== END 2025-02-01 10:54 | disposition home or self-care (01) ==
PROVIDERS: PCP Internal Medicine; Visit Provider Internal Medicine
DX: F41.9 Anxiety disorder, unspecified (principal)

== ENCOUNTER → 2025-02-01 10:06 | Outpatient (BNVA) | payer BC, SELFPAY | PROVIDERS: PCP Internal Medicine; Visit Provider Internal Medicine | DX: F41.9 Anxiety disorder, unspecified (principal) | CPT/HCPCS: 96127 ==

== ENCOUNTER 2025-04-28 08:06 | Outpatient (AMB) | payer BC, SELFPAY ==
--- OUTSIDE RECORDS SUMMARY | 2025-04-28 08:10 | XMS_ITS | Clinical Summary ---
Author Organization [facility] Address [address] [place] [phone] Phone Care Team Providers Care Justice Court Deputy Clerk Name Role Phone Renetta Hoffmann MD Primary [...] age to complete this topic Care Teams Justice Court Deputy Clerk Relationship Specialty Start Date End Date Renetta Hoffmann MD [address] [place] [phone] PCP - General 07/25/15
--- NOTE | 2025-04-28 08:11 | MHC.OFFWIV ---
Intake Vital Signs 04/28/25 08:12 Height 6 ft 5 in Weight 221 lb BMI 26.2 BP 124/80 Blood Pressure Location Rt brachial Position Sitting Pulse 61 Pulse Source Pulse Oximeter Temp 98.7 F Temp Source Oral Pulse Oximetry (%) 98 Oxygen Delivery Method Room Air Intake Visit Reasons: EP-whole body poison georges Patient Tobacco Use Status: Former Tobacco user Allergies amoxicillin Adverse Reaction (Unknown, Verified 04/28/25 08:12) Unknown Do you need a note to return to daycare/school/sports/work: Yes HPI HPI Comments History of Present Illness Details History of Present Illness The patient is a 29-year-old male presenting with a rash on arms and chest. The rash appeared about a week ago and is characterized by fluid-filled vesicular lesions. The patient reports the rash spread from the arms to the chest. He states that the rash is itchy. Initial at-home treatment with calamine lotion proved ineffective. The patient's symptoms do not include any systemic manifestations such as fever or respiratory distress. The patient believes that possible physical spread of the rash occurred through contact with vesicular fluid. There is no significant exposure noted apart from usual activities at home. She denies fever, chills, CP, SOB, joint pain, abd pain, n/v/d. He denies new lotions, soaps, detergents, clothes, foods, pets, recent travel or bug bites. Physical Exam General: Cooperative, healthy appearing, comfortable, no acute distress and well developed Respiratory: Normal respiratory effort and able to speak in complete sentences. Clear to auscultation bilaterally Cardiovascular: Regular rate and rhythm. Normal S1 and S2 Skin: Diffuse vesicular rash on the arms bilaterally and chest. No erythema noted. No discharge noted. Patient was informed and verbally consented to the use of an ambient scribe for clinic note documentation during this visit. [facility] Surgical History Hx of appendectomy Family History Father Colon cancer Social History Housing: House Patient Tobacco Use Status: Former Tobacco user e-Cigarette/Vaping Use: Never Used Second Hand Smoke Exposure: No service: No Current occupational status: employed Current occupation: [employer] Current occupational exposures/hazards: Yes Cognitive needs: No Hearing needs: No Vision needs: No Review of Systems Const All systems reviewed & are unremarkable except as noted in HPI and below Physical Exam Vital Signs: Last Vital Signs Temp 98.7 F 04/28/25 08:12 Pulse 61 04/28/25 08:12 BP 124/80 04/28/25 08:12 Pulse Ox 98 04/28/25 08:12 Oxygen Delivery Method Room Air 04/28/25 08:12 BMI result Body Mass Index 26.2 Assessment & Plan Assessment & Plan (1) Rash: Code(s): R21 - Rash and other nonspecific skin eruption Plan Most likely poison georges vs poison oak vs contact dermatitis Plan I will initiate treatment of the contact dermatitis with prednisone to alleviate inflammation and a topical corticosteroid cream to target the rash. The patient is advised on the importance of avoiding contact with the vesicular fluid to prevent further spread. Prescriptions will be forwarded to the patient's selected pharmacy. No additional testing is warranted currently, given the lack of systemic symptoms. A follow-up will be arranged if the condition does not improve or additional symptoms develop. Medications: New hydrocortisone 2.5% 1 appl topical BID PRN 30 grams 0RF Skin Irritation prednisone Day 1&2 take 4 tablets, day 3&4 take 3 tablets, day 5&6 take 2 tablets, days 7-9 take 1 tablet. 10 mg PO DIRECTED 21 ea 0RF hydroxyzine HCl 10 mg PO qid 7 days 28 tabs 0RF Coding Level of Care Code Est Pt Level 3 (65133) Diagnoses Rash R21
[2025-04-28 08:12] VITALS: BP 124/80; PULSE 61; TEMP 37.1; O2SAT 98; BMI 26.2
== END 2025-04-28 08:45 | disposition home or self-care (01) ==
PROVIDERS: PCP Internal Medicine; Visit Provider Physician Assistant Medical
DX: R21 Rash and other nonspecific skin eruption (principal)

== ENCOUNTER → 2025-04-28 08:06 | Outpatient (BNVA) | payer BC, SELFPAY | PROVIDERS: PCP Internal Medicine; Visit Provider Physician Assistant Medical ==

== ENCOUNTER 2025-06-08 13:23 | Outpatient (AMB) | payer BC, SELFPAY ==
[2025-06-08 13:33] VITALS: BP 118/76; PULSE 93; RESP 18; TEMP 36.7; O2SAT 96; BMI 26.0
--- NOTE | 2025-06-08 13:33 | MHC.PC.OV ---
Vital Signs 06/08/25 13:33 Height 6 ft 5 in Weight 219 lb BMI 26.0 BP 118/76 Blood Pressure Location Lt brachial Position Sitting Respiration 18 Pulse 93 Pulse Source Pulse Oximeter Temp 98.1 F Temp Source Oral Pulse Oximetry (%) 96 Oxygen Delivery Method Room Air Intake Visit Reasons: Annual PE Intake Note: Susanna is here today for PE. Allergies amoxicillin Adverse Reaction (Unknown, Verified 06/08/25 13:33) Unknown Tobacco use date assessed: 06/08/25 Dental Screening Dental Screen Date: 06/08/25 Did you have a dental visit in the last 12 months?: Yes Did you have a dental problem in the last 6 months where you did not have access to dental care?: No Was dental information given to patient?: Patient has dentist HPI Annual PE HPI Details Pt presents for PE. [facility] Medical History (Updated 06/08/25 @ 14:44 by Sarah Tipton MD) Physical exam Surgical History Hx of appendectomy Family History Father Colon cancer Social History Housing: House Patient Tobacco Use Status: Former Tobacco user e-Cigarette/Vaping Use: Never Used Second Hand Smoke Exposure: No service: No Current occupational status: employed Current occupation: [employer] Current occupational exposures/hazards: Yes Cognitive needs: No Hearing needs: No Vision needs: No Questionnaire Thrive Questionnaire Date Thrive assessed: 01/12/25 I am a: Patient What is your living situation today?: I have a steady place to live Within the past 12 months, did the food you bought not last and you didn't have the money to get more?: Never true Within the past 12 months, did you worry whether your food would run out before you got money to buy more?: Never true Do you have trouble paying for medicines?: No Do you have trouble getting transportation to medical appointments?: No Do you have trouble paying your heating and electricity bill?: No Do you have trouble taking care of your child, family member or friend?: No Do you have trouble with day-to-day activities such as bathing, preparing meals, shopping, managing finances, etc.?: No Are you currently unemployed and looking for a job?: No Are you interested in more education?: No Please select the resources that you would like help with: None Currently or been in a relationship where the following occur: No concerns reported THRIVE Score: 0 ONEAL-7 AMB Questionnaire ONEAL-7 Date ONEAL - 7 assessed: 02/01/25 Source: Developed by Drs. Armani Nance, Marilee Rodriguez, Georgi Nicole and colleagues, with an educational eric from [employer]. Review of Systems Const All systems reviewed & are unremarkable except as noted in HPI and below Eyes Reports no additional complaints ENT Reports no additional complaints Card Reports no additional complaints Resp Reports no additional complaints GI Reports no additional complaints Reports no additional complaints Physical exam (Primary Care) Vital Signs: Last Vital Signs Temp 98.1 F 06/08/25 13:33 Pulse 93 06/08/25 13:33 Resp 18 06/08/25 13:33 BP 118/76 06/08/25 13:33 Pulse Ox 96 06/08/25 13:33 Oxygen Delivery Method Room Air 06/08/25 13:33 BMI result Body Mass Index 26.0 Tobacco/Smoking Status: Tobacco use Status Tobacco use date assessed 06/08/25 06/08/25 13:35 Patient Tobacco Use Status Former Tobacco user 06/08/25 13:35 e-Cigarette/Vaping Use Never Used 06/08/25 13:35 Thrive Assessment: Date of Thrive Assessment Date Thrive assessed 01/12/25 06/08/25 13:35 Currently or been in a relationship where the following occur: No concerns reported Const General: no acute distress HENMT Head: Yes normal to inspection Ears: hearing grossly normal bilaterally Mouth: Normal oral and palatal mucosa present Neck Neck: Yes no lymphadenopathy and Yes supple Resp Effort & Inspection: normal respiratory effort Auscultation: clear to auscultation bilaterally Cardio Rhythm: regular rhythm Heart sounds: S1 normal heart sound present and S2 normal heart sound present GI Inspection: Yes normal to inspection Palpation (GI): Soft to palpation Percussion: Yes normal to percussion Auscultation: normal bowel sounds Coding Level of Care Code Est Pt Prev Care 18-39y(71265) Diagnoses Physical exam Z00.00 Assessment & Plan Assessment & Plan (1) Physical exam: Code(s): Z00.00 - Encounter for general adult medical examination without abnormal findings Category: Medical Plan: Well-balanced diet regular physical activity discussed with the patient.
--- OUTSIDE RECORDS SUMMARY | 2025-06-08 14:46 | XMS_ITS | Clinical Summary ---
Author Organization [facility] Address [address] [place] [phone] Phone Care Team Providers Care Child Welfare Caseworker Name Role Phone Renetta Hoffmann MD Primary [...] 61 07/25/2015 12:00 AM EDT Temperature 36.6 C (97.8 F) 07/25/2015 12:00 AM EDT Respiratory Rate - - Oxygen Saturation - [...] 04/26/2018 04/26/2008, 02/07/2005, 02/14/1999, Additional history exists COVID-19 Vaccine ( season) 2024 Influenza Vaccines (#1) 2025 09/10/20 14, 06/11/2012, 08/26/2010, Additional history exists Hepatitis B Vaccines Completed 02/03/1995, 1994, 1994 [...] age to complete this topic Care Teams Child Welfare Caseworker Relationship Specialty Start Date End Date Renetta Hoffmann MD [address] [place] [phone] PCP - General 07/25/15
== END 2025-06-08 14:06 | disposition home or self-care (01) ==
LOC: HO.HMCC 13:24
PROVIDERS: PCP Internal Medicine; Visit Provider Internal Medicine
DX: Z00.00 Encounter for general adult medical examination without abnormal findings (principal)

== ENCOUNTER 2025-11-16 09:47 | Outpatient (AMB) | payer OTHER, SELFPAY ==
[2025-11-16 10:02] VITALS: BP 120/78; PULSE 76; O2SAT 97; BMI 27.9
--- NOTE | 2025-11-16 10:02 | AM.OFFWIN_ITS ---
Intake Vital Signs 11/16/25 10:02 Height 6 ft 5 in Weight 235 lb BMI 27.9 BP 120/78 Blood Pressure Location Rt brachial Position Sitting Pulse 76 Pulse Source Pulse Oximeter Pulse Oximetry (%) 97 Oxygen Delivery Method Room Air Intake Visit Reasons: EP-migraine Intake Note: Patient presents c/o migraine since yesterday morning - OTC meds not helping. Pain is on & off, light sensitive. Hit head on beam a couple days ago. Patient Tobacco Use Status: Former Tobacco user Allergies amoxicillin Adverse Reaction (Unknown, Verified 11/16/25 10:07) Unknown Medication List - Last Reconciled 11/16/25 by Marilyn Bloom MD No Known Home Meds HPI EP-migraine HPI Details History of Present Illness The patient is a 30 year old male presenting with a headache. Headache: - The patient presents with a new-onset headache, which he describes as similar to a migraine. - He reports hitting his head on a cabin et on Saturday morning but experienced no immediate significant symptoms, bleeding, or skin injury. - The headache began around 2:00 AM the following morning, characterized as a unilateral, throbbing, and pulsating pain that comes and goes in bursts. - He denies any history of migraines. - He took Tylenol, which he thought was Advil, at around 5:00 AM, providing temporary relief. - The patient reports feeling slightly b kaur today but expresses a desire to be evaluated. - Associated symptoms are negative for n ausea, vomiting, blurry vision, tingling in the hands, or difficulty speaking. Problem List - unilateral headache right / throbbing off and on - Head injury Plan - A prescription for sumatriptan 50 mg w as sent to the [facility] on [address]. - The patient was instructed to take two 50 mg tablets of sumatriptan with one Aleve tablet. - He was advised to purchase Aleve (napr oxen) [id number], as Tylenol is not effective for migraines. - He should limit sumatriptan intake to one dose per day. - The patient was advised that he should begin to feel better within a couple of hours if the medication is effective. - He was instructed to go to the emergen cy room for a CT scan if the headache worsens or if he develops new symptoms, such as blurry vision, N/V or Headache dont improve - A follow-up with a neurologist was rec ommended to evaluate the new onset of migraines, regardless of the treatment outcome. - The patient was instructed to follow u p with his primary care provider. Review of Systems - General: No fever no chills - Neurological: no dizziness, no blurring of vision, or slurred speach - Ear nose throat: No sore throat no hearing difficulty no ear pain - Cardiovascular: No syncope, no chest pain, no palpitations - Gastrointestinal: No nausea vomiting or diarrhea Physical Exam General: No acute distress HEENT: Pupils are reactive to light, no pain with palpation of scalp Neck: Supple Respiratory system: Able to talk in full sentences, no audible wheeze Cardiovascular: S1-S2 regular in rate and rhythm Gastrointestinal: No pain Extremities: Equal strength TIRE TRIMMER HAND: Alert awake oriented x3 motor intact Skin: Normal turgor PFSH Medical History Physical exam Surgical History Hx of appendectomy Family History Father Colon cancer Social History Housing: House Patient Tobacco Use Status: Former Tobacco user e-Cigarette/Vaping Use: Never Used Second Hand Smoke Exposure: No service: No Current occupational status: employed Current occupation: [employer] Current occupational exposures/hazards: Yes Cognitive needs: No Hearing needs: No Vision needs: No Physical Exam Vital Signs: Last Vital Signs Pulse 76 11/16/25 10:02 BP 120/78 11/16/25 10:02 Pulse Ox 97 11/16/25 10:02 Oxygen Delivery Method Room Air 11/16/25 10:02 BMI result Body Mass Index 27.9 Assessment & Plan Assessment & Plan (1) Headache due to trauma: Code(s): G44.309 - Post-traumatic headache, unspecified, not intractable Qualifiers: Headache chronicity pattern: acute headache Intractability: not intractable Qualified Code(s): G44.319 - Acute post-traumatic headache, not intractable Plan Headache: - The patient presents with a new-onset headache, which he describes as similar to a migraine. - He reports hitting his head on a cabinet on Saturday morning but experienced no immediate significant symptoms, bleeding, or skin injury. - The headache began around 2:00 AM the following morning, characterized as a unilateral, throbbing, and pulsating pain that comes and goes in bursts. - He denies any history of migraines. - He took Tylenol, which he thought was Advil, at around 5:00 AM, providing temporary relief. - The patient reports feeling slightly better today but expresses a desire to be evaluated. - Associated symptoms are negative for nausea, vomiting, blurry vision, tingling in the hands, or difficulty speaking. Problem List - unilateral headache right / throbbing off and on - Head injury Plan - A prescription for sumatriptan 50 mg was sent to the [facility] on [address]. - The patient was instructed to take two 50 mg tablets of sumatriptan with one Aleve tablet. - He was advised to purchase Aleve (naproxen) [id number], as Tylenol is not effective for migraines. - He should limit sumatriptan intake to one dose per day. - The patient was advised that he should begin to feel better within a couple of hours if the medication is effective. - He was instructed to go to the emergency room for a CT scan if the headache worsens or if he develops new symptoms, such as blurry vision, N/V or Headache dont improve - A follow-up with a neurologist was recommended to evaluate the new onset of migraines, regardless of the treatment outcome. - The patient was instructed to follow up with his primary care provider. we had detailed discussion, regarding headache after head truma, since he is feeling better and there is no N/V, i am treating him as outpatient, but he is aware of signs which will lead him to ER Medications: New sumatriptan succinate 100 mg (2 x 50 mg) PO .qd PRN 10 tabs 0RF migraine headache 5 days Coding Level of Care Code Est Pt Level 4 (21020) Diagnoses Acute post-traumatic headache, not intractable G44.319 Headache chronicity pattern: acute headache Intractability: not intractable
--- OUTSIDE RECORDS SUMMARY | 2025-11-16 10:36 | XMS_ITS | Encounter Summary ---
Author Organization [facility] Address [address] [place] [phone] Phone Care Team Providers Care Journalism Teacher Name Role Phone Renetta Hoffmann MD Primary Care Pro vider Encounter Details Date Type Department Care Team (Late st Contact Info) Description 01/23/2018 Conversion Encounter [facility] [address] [phone] Renetta Hoffmann MD [address] [phone] Social History Tobacco Use Types Packs/Day Years [...] on filedocumented in this encounter Care Teams Journalism Teacher Relationship Specialty Start Date End Date Renetta Hoffmann MD [address] [address] PCP - General 07/25/15 documented as of this encounter
--- OUTSIDE RECORDS SUMMARY | 2025-11-16 10:36 | XMS_ITS | Clinical Summary ---
Author Organization [facility] Address [address] [place] [phone] Phone Care Team Providers Care Manager Pool Name Role Phone Renetta Hoffmann MD Primary [...] 02/14/1999, Additional history exists Influenza Vaccines (#1) 2025 09/10/20 14, 06/11/2012, 08/26/2010, Additional history exists COVID-19 Vaccine ( season) 2025 Hepatitis B Vaccines Completed 02/03/1995, 1994, 1994 [...] age to complete this topic Care Teams Manager Pool Relationship Specialty Start Date End Date Renetta Hoffmann MD [address] [place] [phone] PCP - General 07/25/15
== END 2025-11-16 11:02 | disposition home or self-care (01) ==
PROVIDERS: PCP Internal Medicine; Visit Provider Internal Medicine
DX: G44.319 Acute post-traumatic headache, not intractable (principal)

== ENCOUNTER 2025-11-17 14:00 | Emergency (ER) | payer OTHER, SELFPAY ==
--- NOTE | ~2025-11-17 | CT_ITS ---
CLINICAL HISTORY: head injury, worsening [place] CT head without contrast Comparison: None available Findings: No acute hemorrhage. No extra-axial fluid collection. No hydrocephalus, mass-effect or herniation. Bermeo-white differentiation is maintained. White matter is within normal limits for age. No acute orbital pathology. No acute soft tissue abnormality. No fracture. The visualized paranasal sinuses are predominantly clear. The mastoid air cells are clear. Impression: No acute findings. This document has been electronically signed by: Rebeca Rendon MD on 11/17/2025 19:05:17
[2025-11-17 15:11] VITALS: BP 132/66; PULSE 71; RESP 16; TEMP 36.6; O2SAT 98; BMI 27.7
--- NOTE | 2025-11-17 15:11 | ED_ITS ---
HPI - General Adult General Chief complaint: Headache Stated complaint: migraine not getting better Time Seen by Provider: 11/17/25 16:58 Source: patient Mode of arrival: ambulatory Limitations: no limitations History of Present Illness ED Provider: Dr. Bridget Gordon HPI narrative: Patient comes to the emergency room complaining of a headache for 2 days. Patient states that 2 days ago he was at work and struck his head against a beam. Patient states that he did not hit his head or lost consciousness. Patient does not take any blood thinners. Patient states that he was well for the rest of the day. The next day at night, almost 24 hours after a head injury, he started having very intense right-sided headache. Patient states that he has not had any issues with nausea vomiting or vision changes. Patient went to urgent care and was diagnosed with migraine and given sumatriptan. Patient states that when he takes sumatriptan, the headache subsides for about 5 hours and then returns with worsening pain. Patient denies any neck pain. Patient states that he has never had history of migraines before Related Data Previous Rx's ?Medication ?Instructions ?Recorded sumatriptan succinate 50 mg tablet 100 mg (2 x 50 mg) PO .qd PRN 11/16/25 migraine headache 5 days #10 tabs [id number]-[id number]-[id number] 1 cap PO Q8H PRN alonso n #10 caps 11/17/25 50 mg-300 mg-40 mg capsule (Fioricet) Allergies Allergy/AdvReac Type Severity Reaction Status Date / Time amoxicillin AdvReac Unknown Unknown Verified 11/17/25 15:13 Review of Systems Review of Systems: Constitutional : No Weight loss, No Fever, No Chills, No Night Sweats, No Fatigue, No Malaise ENT/Mouth : No Hearing loss, No Ear Pain, No Nasal Congestion, No Sinus Pain, No Hoarseness, No sore throat, No Rhinorrhea, No Swallowing Difficulty Eyes: No Eye Pain, No Swelling, No Redness, No Foreign Body, No Discharge, No Vision Changes Cardiovascular : No Chest Pain, No SOB, No Dyspnea on Exertion, No Orthopnea, No Edema, No Palpitations Respiratory : No Cough, No Sputum, No Wheezing, No Smoke Exposure, No Dyspnea Gastrointestinal : No Nausea, No Vomiting, No Diarrhea, No Constipation, No abdominal Pain, No Hematochezia, No Melena Genitourinary : no irregular bleeding, No Dysuria, No Urinary Frequency, No Hematuria, No Urinary Incontinence, No Urgency, No Flank Pain, No Urinary Flow Changes, No Hesitancy Musculoskeletal : No joint pain, No Myalgias, No Joint Swelling Skin : No Skin Lesions, No rash Neuro : No Weakness, No Numbness, No Paresthesias, No Loss of Consciousness, No Dizziness, complaining of severe right-sided headache that started 24 hours after a head injury Psych : No Anxiety/Panic, No Depression, No SI/HI/AH/VH, No Social Issues, Heme/Lymph: No Bruising, No Bleeding,No Lymphadenopathy Endocrine : No Polyuria, No Polydipsia, No Temperature Intolerance PMF Past Medical History Medical History Physical exam Surgical History Hx of appendectomy Family History Family History Father Colon cancer Social History Social History Housing: House Patient Tobacco Use Status: Former Tobacco user e-Cigarette/Vaping Use: Never Used Second Hand Smoke Exposure: No Advance Directives: No Advance Directives Information Provided: No service: No Current occupational status: employed Current occupation: [employer] Current occupational exposures/hazards: Yes Cognitive needs: No Hearing needs: No Vision needs: No Physical Exam ED Exam Exam: Appearance: Alert. Oriented X3. No acute distress. Eyes: Pupils equal, round and reactive to light. ENT: Pharynx normal. Neck: Normal inspection. Neck supple. No lymph nodes noted. No crepitus CVS: Normal heart rate and rhythm. Pulses normal. Normal S1 and S2 Respiratory: No respiratory distress. Breath sounds normal. No Wheezing. No rales Abdomen: Soft and nontender. No rigidity. No distention. Skin: Skin warm and dry. Normal skin color. Normal skin turgor. Extremities: No lower extremity edema. No Lacerations. No Rash Neuro: Oriented X 3. No motor deficit. No sensory deficit. Moving all extremities. No slurred speech. CN 2 through 12 grossly intact Psych: calm, cooperative, normal affect Vital Signs: Vital Signs - 24 hr 11/17/25 15:11 11/17/25 17:23 11/17/25 17:33 Temperature 98 F 97.3 F Pulse Rate 71 72 65 Respiratory Rate 16 18 18 Blood Pressure 132/66 119/79 116/70 Pulse Oximetry 98 98 96 Oxygen Delivery Method Room Air Room Air Room Air BMI result Body Mass Index 27.7 Course Course Course Narrative: This is a rapid medical exam performed by Luh Rose NP: Additional HPI, ROS, PE not included below will be deferred to primary provider. Patient is a 30y/o M presenting to the ED with complaint of migraine for the past 2 days after hitting his head on a cabinet a few days ago. Denies hx of migraines otherwise. Pain is to right side of head. Went to walk in prescribed sumatriptan, states is not helping. Nausea without vomiting. Medications Administered Discontinued Medications Generic Name Dose Route Start Last Admin Trade Name Freq PRN Reason Stop Dose Admin Diphenhydramine HCl 25 mg 11/17/25 17:06 11/17/25 18:06 Diphenhydramine Hcl 50 Mg/Ml Vial IVPUSH 11/17/25 17:07 25 mg ONCE ONE Administration Sodium Chloride 1,000 mls @ 999 mls/hr 11/17/25 17:06 11/17/25 18:04 Ns IVCONT 11/17/25 18:06 999 mls/hr .Q1H1M ONE Administration Ketorolac Tromethamine 30 mg 11/17/25 17:06 11/17/25 18:04 Ketorolac Tromethamine 30 Mg/Ml Vial IVPUSH 11/17/25 17:07 30 mg ONCE ONE Administration Metoclopramide HCl 10 mg 11/17/25 17:06 11/17/25 18:06 Metoclopramide Hcl 10 Mg/2 Ml Vial IVPUSH 11/17/25 17:07 10 mg ONCE ONE Administration Medical Decision Making Medical Decision Making MDM Narrative: Patient receiving IV fluids, IV Reglan, diphenhydramine and ketorolac Head CT does not show any acute abnormality. Patient states that the headache significantly improved. Patient denies any pain in the neck right side of the head patient's changes. Patient states that his neck feels completely normal, no pain or stiffness Patient was given an extra dose of IV morphine. I discussed with the patient that we would change his medication. However, this medications help for headache due to migraines. Patient likely having a concussion. Patient instructed to follow-up with his primary care physician. Discussed with the patient that he needs at least could 48 hours without any electronics to give time for his brain to ?rest? Differential Diagnosis Differential Diagnoses: The differential diagnosis associated with the presentation includes (Concussion, migraine headache, tension headache. Temporal arteritis was considered but patient does not have any temporal pain) Independent Interpretation I performed an independent interpretation of an: CT Scan Radiology Impression Discussion of test interpretation with radiology: I have reviewed the radiologist's reading. Radiologist Impression: No acute hemorrhage. No extra-axial fluid collection. No hydrocephalus, mass-effect or herniation. Bermeo-white differentiation is maintained. White matter is within normal limits for age. No acute orbital pathology. No acute soft tissue abnormality. No fracture. The visualized paranasal sinuses are predominantly clear. The mastoid air cells are clear. Impression: No acute findings Discharge Plan Discharge Clinical Impression: Concussion Patient Disposition: Home, Self-Care Instructions: Concussion (ED) Additional Instructions: You medications were sent to the [facility] in [address] Your usual pharmacy may be closed to night. Please follow-up with your primary care physician tomorrow. If you have any worsening or new symptoms, please return to the emergency room or call 911 Prescriptions: New tzklrytxeu-ygzqjylzqvapw-srcq [Fioricet] 50-300-40 mg capsule 1 cap PO Q8H PRN (Reason: pain) Qty: 10 0RF No Action sumatriptan succinate 50 mg tablet 100 mg PO .qd PRN (Reason: migraine headache) 5 Days Qty: 10 0RF Print Language: Citizen Of [place]
--- OUTSIDE RECORDS SUMMARY | 2025-11-17 17:16 | XMS_ITS | Encounter Summary ---
Author Organization [facility] Address [address] [place] [id number] Phone Care Team Providers Care Miter Saw Operator Name Role Phone Renetta Hoffmann MD Primary Care Pro vider Encounter Details Date Type Department Care Team (Late st Contact Info) Description 01/23/2018 Conversion Encounter [facility] [address] [phone] Renetta Hoffmann MD [address] [id number] Social History Tobacco Use Types Packs/Day Years [...] on filedocumented in this encounter Care Teams Miter Saw Operator Relationship Specialty Start Date End Date Renetta Hoffmann MD [address] [id number] PCP - General 07/25/15 documented as of this encounter
--- OUTSIDE RECORDS SUMMARY | 2025-11-17 17:16 | XMS_ITS | Clinical Summary ---
Author Organization [facility] Address [address] [place] [phone] Phone Care Team Providers Care Heavy Duty Mechanic Farm Equipment Name Role Phone Renetta Hoffmann MD Primary [...] age to complete this topic Care Teams Heavy Duty Mechanic Farm Equipment Relationship Specialty Start Date End Date Renetta Hoffmann MD [address] [place] [id number] PCP - General 07/25/15
[2025-11-17 17:23] VITALS: BP 119/79; PULSE 72; RESP 18; O2SAT 98
--- NOTE | 2025-11-17 17:32 | PC.NURSE ---
no lump on head/scalp. pt is not photosensative. no n/v. neuros intact. doesn't report sx of concussion. Awaits CT.
[2025-11-17 17:33] VITALS: BP 116/70; PULSE 65; RESP 18; TEMP 36.3; O2SAT 96
[2025-11-17 19:22] VITALS: BP 105/67; PULSE 74; RESP 20; TEMP 37.1; O2SAT 99
--- NOTE | 2025-11-17 19:25 | PC.NURSE ---
Pt a&ox4, no signs of distress. Pt reporting 06/03 headache Pt verified only allergy of amoxicillin Pt medicated per mar Pts fiance at bedside Plan of care ongoing.
[2025-11-17 19:35] VITALS: BP 105/67; PULSE 74; RESP 20; TEMP 37.1; O2SAT 99
== END 2025-11-17 19:36 | disposition home or self-care (01) ==
PROVIDERS: Emergency Provider Emergency Medicine; PCP Internal Medicine
DX: S06.0X0A Concussion without loss of consciousness, initial encounter (principal); W22.09XA Striking against other stationary object, initial encounter; Y93.89 Activity, other specified; Y92.9 Unspecified place or not applicable; Y99.0 Civilian activity done for income or pay
CPT/HCPCS: 70450; 96361; 96374; 96375; 99284; J1200; J1885; J2270; J2765

== ENCOUNTER → 2025-11-17 17:06 | Outpatient (BNV) | payer OTHER, SELFPAY | PROVIDERS: Emergency Provider Emergency Medicine; PCP Internal Medicine; Visit Provider Radiology Diagnostic Radiology | DX: R51.9 Headache, unspecified (principal) | CPT/HCPCS: 70450 ==